=== PATIENT | female | born 1965 | race Caucasian/White ===

== ENCOUNTER 2018-11-28 03:58 | Observation (INO) | payer BC ==
--- NOTE | 2018-11-28 04:15 | EDM.PDOC ---
ED HPI GENERAL MEDICAL PROBLEM - General Chief Complaint: Lower Extremity Injury/Pain Stated Complaint: AMBULANCE Time Seen by Provider: 11/28/18 04:13 - History of Present Illness INITIAL COMMENTS - FREE TEXT/NARRATIVE: HISTORY AND PHYSICAL: History of present illness: Patient 53-year-old white female presents status post fall which injured her right lower extremity seems to be primarily her right ankle she was brought by remote computer terminal operator she denies any head or neck pain or trauma or other concern she states this was simply a mechanical fall Review of systems: As per history of present illness and below otherwise all systems reviewed and negative. Past medical history: As per history of present illness and as reviewed below otherwise noncontributory. Surgical history: As per history of present illness and as reviewed below otherwise noncontributory. Social history: No reported history of drug or alcohol abuse. Family history: As per history of present illness and as reviewed below otherwise noncontributory. Physical exam: HEENT: Atraumatic, normocephalic, pupils reactive, negative for conjunctival pallor or scleral icterus, mucous membranes moist, throat clear, neck supple, nontender, trachea midline. Lungs: Clear to auscultation, breath sounds equal bilaterally, chest nontender. Heart: S1S2, regular, negative for clicks, rubs, or JVD. Abdomen: Soft, nondistended, nontender. Negative for masses or hepatosplenomegaly. Negative for costovertebral tenderness. Pelvis: Stable nontender. Genitourinary: Deferred. Rectal: Deferred. Extremities: Patient's right ankle has an abrasion over the medial malleolus with large swelling and what appears to be a obvious fracture neurovascular exam is unremarkable Neuro: Awake, alert, oriented. Cranial nerves II through XII unremarkable. Cerebellum unremarkable. Motor and sensory unremarkable throughout. Exam nonfocal. Diagnostics: X-ray right tib-fib/ankle CBC CMP PT/INR EtOH Therapeutics: Patient's tibiotalar dislocation was reduced posterior mold was applied abrasion was cleansed and dressed with a Telfa dressing Ancef 2 g IV Impression: #1 acute right ankle injury (see bimalleolar fracture/dislocation) Definitive disposition and diagnosis as appropriate pending reevaluation and review of above. Treatments [employer]IVER: Reports: Splint(s) right ankle Pain Score (Numeric/FACES): 8 - Related Data Allergies Allergy/AdvReac Type Severity Reaction Status Date / Time No Known Allergies Allergy Verified 11/28/18 04:04 Home Meds: Home Meds . [No Known Home Meds] 11/28/18 [History] Past Medical History - Past Health History Medical/Surgical History: Denies Medical/Surgical History Social & Family History - Family History Family Medical History: Noncontributory - Tobacco Use Smoking Status *Q: Current Every Day Smoker Years of Tobacco use: 20 Packs/Tins Daily: 1 - Recreational Drug Use Recreational Drug Use: No Review of Systems - Review of Systems Review Of Systems: ROS reveals no pertinent complaints other than HPI. ED EXAM, GENERAL - Physical Exam Exam: See Below (See dictation) Course - Vital Signs Last Recorded V/S: Last Vital Signs Temp 36.4 C 11/28/18 03:58 Pulse 95 11/28/18 03:58 Resp 18 11/28/18 03:58 BP 114/69 11/28/18 03:58 Pulse Ox 95 11/28/18 03:58 - Orders/Labs/Meds Orders: Active Orders 24 hr Category Date Time Status Ankle Min 3V Rt [CR] Stat Exams 11/28/18 04:05 Taken Tibia Fibula Rt [CR] Stat Exams 11/28/18 04:05 Taken Departure - Departure Time of Disposition: 04:50 Disposition: Refer to Observation Condition: Good Clinical Impression: Bimalleolar fracture of right ankle - Discharge Information Referrals: PCP,None [Primary Care Provider] - Forms: ED Department Discharge - My Orders Last 24 Hours: My Active Orders 11/28/18 04:05 Ankle Min 3V Rt [CR] Stat Tibia Fibula Rt [CR] Stat - Assessment/Plan Last 24 Hours: My Active Orders 11/28/18 04:05 Ankle Min 3V Rt [CR] Stat Tibia Fibula Rt [CR] Stat
[2018-11-28] MEDS ORDERED: Sodium Chloride 0.9% 1,000 ML IV ONE (04:49)
[2018-11-28] MEDS ORDERED: Morphine 2 MG/ML Syringe IVPUSH ONE (04:50)
[2018-11-28] MEDS ORDERED: Ondansetron 4 MG/2 ML SDV IVPUSH ONE (04:50)
[2018-11-28] MEDS ORDERED: ceFAZolin 2 GM in Premix Bag 1 BAG IV ONE (04:51)
--- NOTE | 2018-11-28 05:20 | CR ---
HISTORY: Pain after fall COMPARISON: None available. FINDINGS: AP, lateral and oblique views of the right ankle were obtained for a total of three views. There is an acute, prominently displaced bimalleolar fracture. There is an oblique fracture of the distal fibular shaft with 100 percent lateral displacement and approximately 30 degrees lateral angulation of the distal fracture fragment. There is a comminuted, transverse fracture of the base of the medial malleolus with between 0.8 and 1.7 centimeters of lateral displacement of the fracture fragments. There is approximately 1.5 centimeters of lateral shift of the talus with 30 degrees lateral angulation. There is no sign of fracture of the talar dome. There is no sign of fracture of the posterior distal tibia. There is moderate diffuse soft tissue swelling. There is no sign of a joint effusion. There are moderate plantar and mild posterior calcaneal spurs. IMPRESSION: Acute, moderately displaced, mildly angulated bimalleolar fracture with approximately 1.7 centimeters of lateral shift and mild lateral angulation of the talus. Dictated by Woody Phillip MD @ Nov 28 2018 5:15AM Signed by Dr. Woody Phillip @ Nov 28 2018 5:19AM
--- NOTE | 2018-11-28 05:22 | CR ---
INDICATION: Pain after fall COMPARISON: Right ankle from today TECHNIQUE: AP and lateral views of the right tibia and fibula were obtained. FINDINGS: The comminuted, moderately displaced and mildly angulated bimalleolar fracture of the ankle is described on the accompanying ankle report. There is no sign of fracture of the more proximal portions of the tibia or fibula, with intact tibial and fibular shafts and an intact appearance of the knee. The soft tissues are normal in appearance without sign of radio-opaque foreign body. No significant degenerative disease is seen in the visualized portion of the knee. IMPRESSION: Acute, comminuted, moderately displaced and mildly angulated bimalleolar fracture of the ankle described on the accompanying ankle report. No sign of fracture of the rest of the tibia and fibula, with normal appearance of the knee. Dictated by Woody Phillip MD @ Nov 28 2018 5:19AM Signed by Dr. Woody Phillip @ Nov 28 2018 5:21AM
[2018-11-28 05:24] LABS: CHLORIDE,CL 97 mmol/L (98-107); SODIUM,NA 134 mmol/L (136-145)
[2018-11-28] MEDS ORDERED: Morphine 2 MG/ML Syringe IVPUSH PRN (06:48)
[2018-11-28] MEDS: Lactated Ringers 1,000 ML IV SCH ×2 (07:30→21:11)
--- NOTE | 2018-11-28 07:38 | CR ---
INDICATION: Post reduction. Right ankle fractures. TECHNIQUE: Two views right ankle. COMPARISON: Films from earlier today. FINDINGS: Overlying cast or splint obscures bony detail. Moderately displaced, moderately angulated acute comminuted fracture involving the right distal fibular metadiaphysis. Moderately displaced acute comminuted fracture involving the right medial malleolus. These fractures are less displaced. Persistent but improved medial subluxation of the right distal tibia with regard to the talar dome. Moderate diffuse soft tissue swelling distal right calf, ankle and hindfoot. Findings consistent with ligamentous disruption of the right ankle medially. Moderate subcutaneous edema. Remainder stable. Dictated by Sanford Osorio MD @ Nov 28 2018 7:33AM Signed by Dr. Sanford Osorio @ Nov 28 2018 7:36AM
[2018-11-28] MEDS ORDERED: ceFAZolin 2 GM in Premix Bag 1 BAG IV SCH (09:00)
--- NOTE | 2018-11-28 09:03 | PCM.HP ---
H&P History of Present Illness - General Date of Service: 11/28/18 Admit Problem/Dx: Admission Diagnosis/Problem Admission Diagnosis/Problem Bimalleolar fracture Source of Information: Patient History Limitations: Reports: No Limitations - History of Present Illness Initial Comments - Free Text/Narative: Fell and twisted right ankle while intoxicated. immediate and severe pain. no other pain. did not hit head. denies parastesias. Onset of Symptoms: Reports: Today Severity: Severe right ankle Pain Score (Numeric/FACES): 0 - Related Data Allergies/Adverse Reactions: Allergies Allergy/AdvReac Type Severity Reaction Status Date / Time No Known Allergies Allergy Verified 11/28/18 04:04 Home Medications: Home Meds . [No Known Home Meds] 11/28/18 [History] Past Medical History - Past Health History Medical/Surgical History: Denies Medical/Surgical History Neurological History: Reports: Other (See Below) Other Neuro History: Luis F Diaz Social & Family History - Family History Family Medical History: Noncontributory - Tobacco Use Smoking Status *Q: Current Every Day Smoker Years of Tobacco use: 20 Packs/Tins Daily: 1 Used Tobacco, but Quit: No Second Hand Smoke Exposure: No - Caffeine Use Caffeine Use: Reports: Coffee - Alcohol Use Days Per Week of Alcohol Use: 3 Number of Drinks Per Day: 6 Total Drinks Per Week: 18 - Recreational Drug Use Recreational Drug Use: No H&P Review of Systems - Review of Systems: Review Of Systems: ROS reveals no pertinent complaints other than HPI. Exam - Exam Exam: See Below - Vital Signs Vital Signs: Last Vital Signs Temp 36.8 C 11/28/18 05:30 Pulse 95 11/28/18 05:30 Resp 18 11/28/18 05:30 BP 105/70 11/28/18 05:30 Pulse Ox 99 11/28/18 05:30 Weight: 58.967 kg - Exam General: Alert, Oriented HEENT: EOMI Neck: Trachea Midline Lungs: Normal Respiratory Effort Cardiovascular: Regular Rate, Regular Rhythm GI/Abdominal Exam: Soft Skin: Warm, Dry, Intact Physical Exam Comments:: right ankle with deformity and swelling. skin is intact. active AT/EHL/GSC. 2+ DP, SILT tibial/sural/deep & superficial peroneal, saphenous. TTP right ankle. no pain in foot.no pain near knee. - Patient Data Lab Results Last 24 hrs: Laboratory Results - last 24 hr 11/28/18 11/28/18 11/28/18 Range/Units 04:57 04:57 04:57 WBC 21.02 H (4.0-11.0) K/uL RBC 4.53 (4.30-5.90) M/uL Hgb 15.1 (12.0-16.0) g/dL Hct 42.3 (36.0-46.0) % MCV 93.4 (80.0-98.0) fL MCH 33.3 H (27.0-32.0) pg MCHC 35.7 (31.0-37.0) g/dL RDW Std Deviation 45.6 (28.0-62.0) fl RDW Coeff of Kelvin 13 (11.0-15.0) % Plt Count 298 (150-400) K/uL MPV 8.80 (7.40-12.00) fL Add Manual Diff YES Neutrophils % (Manual) 81 H (48.0-80.0) % Band Neutrophils % 8 % Lymphocytes % (Manual) 11 L (16.0-40.0) % Nucleated RBC % 0.0 /100WBC Absolute Seg Neuts 17.0 H (1.4-5.7) Band Neutrophils # 1.7 Lymphocytes # (Manual) 2.3 (0.6-2.4) Nucleated RBCs # 0 K/uL INR 0.97 Sodium 134 L (136-145) mmol/L Potassium 3.6 (3.5-5.1) mmol/L Chloride 97 L (98-107) mmol/L Carbon Dioxide 18.9 L (21.0-32.0) mmol/L BUN 5 L (7.0-18.0) mg/dL Creatinine 0.6 (0.6-1.0) mg/dL Est Cr Clr Drug Dosing 79.68 mL/min Estimated GFR (MDRD) > 60.0 ml/min Glucose 96 (74-106) mg/dL Calcium 8.2 L (8.5-10.1) mg/dL Total Bilirubin 0.2 (0.2-1.0) mg/dL AST 22 (15-37) IU/L ALT 26 (14-63) IU/L Alkaline Phosphatase 138 H (46-116) U/L Total Protein 7.1 (6.4-8.2) g/dL Albumin 3.8 (3.4-5.0) g/dL Globulin 3.3 (2.6-4.0) g/dL Albumin/Globulin Ratio 1.2 (0.9-1.6) Ethyl Alcohol 296 mg/dL Result Diagrams: 11/28/18 04:57 11/28/18 04:57 Imaging Impressions Last 24 hrs: RIGHT ankle shows bimalleolar fracture with comminution and 40% subluxation laterally. - Problem List (1) Bimalleolar fracture of right ankle SNOMED Code(s): 203942038 ICD Code: S82.841A - DISPLACED BIMALLEOLAR FRACTURE OF RIGHT LOWER LEG, INIT Status: Acute Current Visit: Yes Problem List Initiated/Reviewed/Updated: Yes Orders Last 24hrs: Active Orders 24 hr Category Date Time Status Patient Status [ADT] Routine ADT 11/28/18 08:55 Ordered Patient Status [ADT] Stat ADT 11/28/18 04:50 Active Antiembolic Devices [RC] PER UNIT ROUTINE Care 11/28/18 08:56 Ordered Verify Patient Consent Obtain [RC] ASDIRECTED Care 11/28/18 08:56 Ordered NPO [Nothing Per Oral Diet] [DIET] Diet 11/28/18 Breakfast Active Acetaminophen/HYDROcodone [[place] 325-5 MG] Med 11/28/18 06:54 Active 1 - 2 tab PO Q4H PRN Lactated Ringers [Ringers, Lactated] 1,000 ml Med 11/28/18 07:00 Active IV ASDIRECTED Morphine Med 11/28/18 06:48 Active 2 mg IVPUSH Q2H PRN ceFAZolin [Ancef] 2 gm Med 11/28/18 09:00 Ordered Premix Bag 1 bag IV ONETIME Sequential Compression Device [OM.PC] Routine Oth 11/28/18 08:56 Ordered Resuscitation Status Routine Resus Stat 11/28/18 08:55 Ordered Medication Orders Hydrocodone Bitart/Acetaminophen ([place] 325-5 Mg) 1 - 2 tab PO Q4H PRN PRN Reason: Pain Lactated Ringer's (Ringers, Lactated) 1,000 mls @ 100 mls/hr IV ASDIRECTED NORMA Last Admin: 11/28/18 07:30 Dose: 100 mls/hr Cefazolin Sodium/Dextrose 2 gm (/ Premix) 50 mls @ 100 mls/hr IV ONETIME NORMA Morphine Sulfate (Morphine) 2 mg IVPUSH Q2H PRN PRN Reason: Pain/Fever Last Admin: 11/28/18 08:41 Dose: 2 mg Assessment/Plan Comment:: right ankle bimalleolar fracture/subluxation- - NPO, bedrest - I discussed the nonoperative and operative treatment options with her including ORIF. Due to the comminution and subluxation, this will likely not do well with non-operative treatment. Therefore she has elected to proceed with ORIF. She understand the risks/benefits/alternatives/ and complications of ORIF including but not limited to infection, neurovascular injury, malunion, nonunion, and she wishes to proceed. - she will be placed on ecotrin for DVT prophylaxis after surgery - she will be non weight bearing for ~ 6 weeks and will be in a splint initially - she will f/u in clinic in 2 weeks.
[2018-11-28] MEDS ORDERED: Bupivacaine 0.25% 10 ML SDV ONE (11:43)
[2018-11-28] MEDS ORDERED: Ondansetron 4 MG/2 ML SDV ONE (12:05)
[2018-11-28] MEDS ORDERED: Midazolam 1 MG/ML 2 ML SDV ONE (12:05)
[2018-11-28] MEDS ORDERED: fentaNYL 250 MCG/5 ML SDV ONE (12:05)
[2018-11-28] MEDS ORDERED: Propofol 200 MG/20 ML SDV ONE (12:05)
[2018-11-28] MEDS ORDERED: Famotidine 20 MG/2 ML SDV ONE (12:14)
--- NOTE | 2018-11-28 13:05 | PCM.PREANE ---
Preanesthetic Assessment - Anesthesia/Transfusion/Family Hx Anesthesia History: Prior Anesthesia Without Reaction ("extensive eye surgery as a child") Family History of Anesthesia Reaction: No Transfusion History: No Prior Transfusion(s) Intubation History: Unknown - Review of Systems General: No Symptoms Pulmonary: No Symptoms Cardiovascular: No Symptoms Gastrointestinal: No Symptoms, Other (Pt did drink alcohol in excess last night , which led to her fall and she states that she did vomit one time last night as well) Neurological: No Symptoms Other: Reports: None - Physical Assessment NPO Status Date: 11/28/18 NPO Status Time: 02:00 (alcohol) O2 Sat by Pulse Oximetry: 99 Respiratory Rate: 18 Vital Signs: Last Vital Signs Temp 98.3 F 11/28/18 05:30 Pulse 95 11/28/18 05:30 Resp 18 11/28/18 05:30 BP 105/70 11/28/18 05:30 Pulse Ox 99 11/28/18 05:30 Height: 4 ft 11 in Weight: 130 lb ASA Class: 2 Mental Status: Alert & Oriented x3 Airway Class: Mallampati = 4 Dentition: Reports: Normal Dentition Thyro-Mental Finger Breadths: 2 Mouth Opening Finger Breadths: 2 (VERY SMALL MOUTH) ROM/Head Extension: Full Lungs: Clear to Auscultation, Normal Respiratory Effort Cardiovascular: Regular Rate, Regular Rhythm - Lab Values: Laboratory Last Values WBC 21.02 K/uL (4.0-11.0) H 11/28/18 04:57 RBC 4.53 M/uL (4.30-5.90) 11/28/18 04:57 Hgb 15.1 g/dL (12.0-16.0) 11/28/18 04:57 Hct 42.3 % (36.0-46.0) 11/28/18 04:57 MCV 93.4 fL (80.0-98.0) 11/28/18 04:57 MCH 33.3 pg (27.0-32.0) H 11/28/18 04:57 MCHC 35.7 g/dL (31.0-37.0) 11/28/18 04:57 RDW Std Deviation 45.6 fl (28.0-62.0) 11/28/18 04:57 RDW Coeff of Kelvin 13 % (11.0-15.0) 11/28/18 04:57 Plt Count 298 K/uL (150-400) 11/28/18 04:57 MPV 8.80 fL (7.40-12.00) 11/28/18 04:57 Add Manual Diff YES 11/28/18 04:57 Neutrophils % (Manual) 81 % (48.0-80.0) H 11/28/18 04:57 Band Neutrophils % 8 % 11/28/18 04:57 Lymphocytes % (Manual) 11 % (16.0-40.0) L 11/28/18 04:57 Nucleated RBC % 0.0 /100WBC 11/28/18 04:57 Absolute Seg Neuts 17.0 (1.4-5.7) H 11/28/18 04:57 Band Neutrophils # 1.7 11/28/18 04:57 Lymphocytes # (Manual) 2.3 (0.6-2.4) 11/28/18 04:57 Nucleated RBCs # 0 K/uL 11/28/18 04:57 INR 0.97 11/28/18 04:57 Sodium 134 mmol/L (136-145) L 11/28/18 04:57 Potassium 3.6 mmol/L (3.5-5.1) 11/28/18 04:57 Chloride 97 mmol/L (98-107) L 11/28/18 04:57 Carbon Dioxide 18.9 mmol/L (21.0-32.0) L 11/28/18 04:57 BUN 5 mg/dL (7.0-18.0) L 11/28/18 04:57 Creatinine 0.6 mg/dL (0.6-1.0) 11/28/18 04:57 Est Cr Clr Drug Dosing 79.68 mL/min 11/28/18 04:57 Estimated GFR (MDRD) > 60.0 ml/min 11/28/18 04:57 Glucose 96 mg/dL (74-106) 11/28/18 04:57 Calcium 8.2 mg/dL (8.5-10.1) L 11/28/18 04:57 Total Bilirubin 0.2 mg/dL (0.2-1.0) 11/28/18 04:57 AST 22 IU/L (15-37) 11/28/18 04:57 ALT 26 IU/L (14-63) 11/28/18 04:57 Alkaline Phosphatase 138 U/L (46-116) H 11/28/18 04:57 Total Protein 7.1 g/dL (6.4-8.2) 11/28/18 04:57 Albumin 3.8 g/dL (3.4-5.0) 11/28/18 04:57 Globulin 3.3 g/dL (2.6-4.0) 11/28/18 04:57 Albumin/Globulin Ratio 1.2 (0.9-1.6) 11/28/18 04:57 HCG, Qual NEGATIVE (NEG) 11/27/18 04:13 Ethyl Alcohol 296 mg/dL 11/28/18 04:57 - Allergies Allergies/Adverse Reactions: Allergies Allergy/AdvReac Type Severity Reaction Status Date / Time No Known Allergies Allergy Verified 11/28/18 04:04 - Blood Blood Available: No Product(s) Available: None - Anesthesia Plan Free Text/Narrative:: GA with Proseal LMA (most likely child's size d/t small size of airway) vs ETT ( pt has been NPO for over 8 hours at this time with no nausea since drinking/ falling episode which she contributes to "pain") Pre-Op Medication Ordered: Antacids (will pretreat with pepcid) - Acknowledgements Anesthesia Type Planned: General Anesthesia Pt an Appropriate Candidate for the Planned Anesthesia: Yes Alternatives and Risks of Anesthesia Discussed w Pt/Guardian: Yes Pt/Guardian Understands and Agrees with Anesthesia Plan: Yes PreAnesthesia Questionnaire - Past Health History Medical/Surgical History: Denies Medical/Surgical History Gastrointestinal History: Reports: GERD (occasionally, but denies any today) Neurological History: Reports: Other (See Below) Other Neuro History: Luis F Diaz - approx 30 years ago - Past Surgical History HEENT Surgical History: Reports: Eye Surgery (pt states "extensive" eye surgery when she was little - "completely asleep") - SUBSTANCE USE Smoking Status *Q: Current Every Day Smoker Tobacco Use Within Last Twelve Months: Cigarettes Second Hand Smoke Exposure: No Days Per Week of Alcohol Use: 3 Number of Drinks Per Day: 6 Total Drinks Per Week: 18 Recreational Drug Use History: No - HOME MEDS Home Medications: Home Meds . [No Known Home Meds] 11/28/18 [History] - CURRENT (IN HOUSE) MEDS Current Meds: Current Medications Hydrocodone Bitart/Acetaminophen ([place] 325-5 Mg) 1 - 2 tab PO Q4H PRN PRN Reason: Pain Lactated Ringer's (Ringers, Lactated) 1,000 mls @ 100 mls/hr IV ASDIRECTED NORMA Last Admin: 11/28/18 07:30 Dose: 100 mls/hr Cefazolin Sodium/Dextrose 2 gm (/ Premix) 50 mls @ 100 mls/hr IV ONETIME NORMA Morphine Sulfate (Morphine) 2 mg IVPUSH Q2H PRN PRN Reason: Pain/Fever Last Admin: 11/28/18 08:41 Dose: 2 mg Discontinued Medications Bupivacaine HCl (Sensorcaine-Mpf 0.25%) Confirm Administered Dose 10 ml .ROUTE .STK-MED ONE Stop: 11/28/18 11:44 Famotidine (Pepcid) Confirm Administered Dose 20 mg .ROUTE .STK-MED ONE Stop: 11/28/18 12:15 Fentanyl (Sublimaze) Confirm Administered Dose 250 mcg .ROUTE .STK-MED ONE Stop: 11/28/18 12:06 Cefazolin Sodium/Dextrose 2 gm (/ Premix) 50 mls @ 100 mls/hr IV ONETIME ONE Stop: 11/28/18 05:20 Last Admin: 11/28/18 05:04 Dose: 100 mls/hr Sodium Chloride (Normal Saline) 1,000 mls @ 999 mls/hr IV .Bolus ONE Stop: 11/28/18 05:49 Last Admin: 11/28/18 05:00 Dose: 999 mls/hr Lidocaine HCl (Xylocaine-Mpf 1%) Confirm Administered Dose 5 mls @ as directed .ROUTE .STK-MED ONE Stop: 11/28/18 12:06 Midazolam HCl (Versed 1 Mg/Ml) Confirm Administered Dose 2 mg .ROUTE .STK-MED ONE Stop: 11/28/18 12:06 Morphine Sulfate (Morphine) 4 mg IVPUSH ONETIME ONE Stop: 11/28/18 04:51 Last Admin: 11/28/18 05:04 Dose: 4 mg Ondansetron HCl (Zofran) 4 mg IVPUSH ONETIME ONE Stop: 11/28/18 04:51 Last Admin: 11/28/18 05:04 Dose: 4 mg Ondansetron HCl (Zofran) Confirm Administered Dose 4 mg .ROUTE .STK-MED ONE Stop: 11/28/18 12:06 Propofol (Diprivan 20 Ml) Confirm Administered Dose 200 mg .ROUTE .STK-MED ONE Stop: 11/28/18 12:06
[2018-11-28] MEDS ORDERED: Phenylephrine/Normal Saline 100 MCG/ML 10 ML Syringe ONE (13:07)
[2018-11-28] MEDS ORDERED: EPINEPHrine 1 MG/1 ML Amp IVPUSH PRN (13:08)
[2018-11-28] MEDS ORDERED: fentaNYL 100 MCG/2 ML SDV IVPUSH PRN (13:08)
[2018-11-28] MEDS ORDERED: 50% Dextrose in Water 50 ML Syringe IVPUSH PRN (13:08)
[2018-11-28] MEDS ORDERED: Albuterol 0.083% 2.5 MG/3 ML Neb Soln NEB PRN (13:08)
[2018-11-28] MEDS ORDERED: Naloxone 0.4 MG/ML Syringe IVPUSH PRN (13:08)
[2018-11-28] MEDS ORDERED: Ketorolac 30 MG/ML SDV ONE (13:26)
[2018-11-28] MEDS ORDERED: ceFAZolin 1 GM Vial ONE (13:42)
--- NOTE | 2018-11-28 13:42 | PCM.OPNOTE ---
- General Post-Op/Procedure Note Date of Surgery/Procedure: 11/28/18 Operative Procedure(s): ORIF right ankle lateral malleolus Findings: comminution and dimunitive skin over medial malleolus Pre Op Diagnosis: right ankle bimalleolar ankle fracture dislocation Post-Op Diagnosis: same Anesthesia Technique: General LMA Primary Surgeon: Scott Dawn Mai EBL in mLs: 10 Complications: none Condition: Fair Free Text/Narrative:: Intake & Output 11/27/18 11/28/18 11/28/18 22:59 06:59 14:59 Output Total 1300 Balance -1300
--- NOTE | 2018-11-28 14:11 | PCM.POSTAN ---
POST ANESTHESIA ASSESSMENT - MENTAL STATUS Mental Status: Alert, Oriented - RESPIRATORY Respiratory Status: Respiratory Rate WNL, Airway Patent, O2 Saturation Stable - CARDIOVASCULAR CV Status: Pulse Rate WNL, Blood Pressure Stable - GASTROINTESTINAL GI Status: No Symptoms - PAIN Pain Score: 6 ("pain is subsiding") - POST OP HYDRATION Hydration Status: Adequate & Stable - OBSERVATIONS Free Text/Narrative:: Pt resting comfortably after additional dose of fentanyl in recovery with a smile on her face while talking. Pt appears much more relaxed than prior to surgery. VSS. Pt stable for transfer to the floor for phase II recovery.
--- NOTE | 2018-11-28 14:47 | PCM48HPAN ---
Post Anesthesia Note - EVALUATION WITHIN 48HRS OF ANESTHETIC Vital Signs in Normal Range: Yes Patient Participated in Evaluation: Yes Respiratory Function Stable: Yes Airway Patent: Yes Cardiovascular Function Stable: Yes Hydration Status Stable: Yes Pain Control Satisfactory: Yes Nausea and Vomiting Control Satisfactory: Yes Mental Status Recovered: Yes Resp Rate: 18
[2018-11-28] MEDS: Acetaminophen/HYDROcodone 325-5 MG Tab PO PRN ×2 (15:24→21:11)
--- NOTE | 2018-11-28 16:43 | OR ---
SURGEON: Scott Calderón MD DATE OF PROCEDURE: 11/28/2018 SUBJECTIVE: The patient is a 53-year-old female, who was intoxicated in the early hours of the morning and tripped and fell, twisting and suffering an ankle fracture dislocation on her right ankle. She had it partially reduced by the ER physician. We discussed with her the risks, benefits, alternatives, complications of operative and nonoperative treatment. In operative treatment, risks, benefits, alternatives, complications including not limited to, infection, neurovascular injury, continued pain, malunion, nonunion, need of postoperative protocol, DVT, PE, stroke, AR, and she wished to proceed. DESCRIPTION OF PROCEDURE: The patient was seen in preoperative area. Operative extremity was marked with the patient. She was transferred to operating room and placed supine on the operating room table. General anesthesia was induced. An LMA was placed. She received preop antibiotics of Ancef. A bump was placed under the right thigh. A well-padded upper thigh tourniquet was placed, and the right leg was prepped and draped in a fashion using alcohol followed by ChloraPrep. A formal time-out was taken identifying the correct patient, procedure and extremity. The limb was exsanguinated with an Esmarch bandage. Tourniquet inflated to 250 mmHg. Tourniquet time during the case was 20 minutes. She had very thin skin medially and abrasions/eschar over the skin medially directly over the fracture of approximately 1 x 1.5 cm. The ankle was able to be reduced easily. A 10 cm incision was centered over the lateral malleolus was made. Dissection was carried down through subcutaneous tissues. Hemostasis was obtained. The superficial peroneal nerve was looked for, but was not found. The fracture was readily identified. There was some comminution anteriorly near the anterior- inferior tibiofibular ligament which was able to be reduced. There was a typical anterior inferior to posterior superior fracture which was able to be easily reduced with reduction clamp and then a 3.5 cortical screw was placed from anterior superior to posterior inferior in inner fragmentary fashion. I was able to reduce the fibula anatomically. A four hole [place] anatomic fibular plate was placed over it and bending to make sure that it fit, and then three bicortical 3.5 cortical screws were placed approximately. One 3.5 cortical screw was placed distally bicortical and three locking screws were placed in the distal four holes unicortical. This allowed anatomic reduction of the fibula. Fluoroscopy confirmed anatomic reduction. The medial malleolus was comminuted with a large butterfly fragment on the very medial aspect. It was in relatively good position and finger pressure was able to reduce the far medial comminuted fracture. Also, under fluoroscopic control, it was checked with external stress view, there was no opening of the syndesmosis. With the ankle in dorsiflexion, the medial malleolus stayed in a reasonably well reduced position. Due to extreme thinning of the skin in comminution and the patient's alcoholism, decision was made to not proceed with ORIF of the medial malleolus due to potential risk for infection. Therefore, the tourniquet was then deflated. Hemostasis was obtained. The wound was thoroughly irrigated. The subcutaneous tissues in the lateral aspect were closed with 3-0 Vicryl and skin with ever. Xeroform sterile dressing and a Jim type splint were placed. The patient was extubated in the operating room and transferred to the recovery room in stable condition. Sponge and needle counts were correct at the end of the case. There were no complications. She will be kept nonweightbearing. She will return to clinic in 2 weeks. If the medial malleolus is not maintained in good position, she may require ORIF of that at a later date. HUMPHREY HERNANDEZ /[id number]
--- NOTE | 2018-11-29 07:26 | PCM.SN ---
- Free Text/Narrative Note: S: Unable to ambulate well yesterday with crutches so stayed overnight. pain reasonably well controlled. tolerating PO and urinating O: Afebrile vital signs stable RLE: splint dry and intact. <2 sec cap refill in toes. wiggles toes A/P: POD #1 ORIF right ankle - non weight bearing with crutches - PT today for ambulation and then home. - elevate, f/u in clinic 2 weeks. - may require ORIF of medial malleolus at a later date.
[2018-11-29] MEDS: Acetaminophen/HYDROcodone 325-5 MG Tab PO PRN ×2 (07:33→15:22)
--- NOTE | 2018-11-29 08:57 | CR ---
EXAMINATION: Right ankle HISTORY: ORIF COMPARISON: 11/28/2018 TECHNIQUE: 5 fluoroscopic images provided FINDINGS/IMPRESSION: Operative control films demonstrate screw and plate fixation of the distal fibular fracture with overall reduction of the bimalleolar fracture.
--- NOTE | 2018-11-30 17:21 | PCM.DCSUM1 ---
Discharge Summary - Hospital Course Brief History: Patient was admitted with a right ankle fracture dislocation. She was noted to the floor and then underwent open reduction internal fixation. Postoperatively she was bending forward pain was controlled and her diet was advanced and she participated in physical therapy and subsequent discharged home on postoperative day #1. She'll take aspirin for DVT prophylaxis she will follow-up in clinic in 2 weeks. She'll maintain nonweightbearing status. Diagnosis: Stroke: No - Discharge Data Discharge Date: 11/29/18 Discharge Disposition: Home, Self-Care 01 Condition: Fair - Discharge Diagnosis/Problem(s) (1) Bimalleolar fracture of right ankle SNOMED Code(s): 281435396 ICD Code: S82.841A - DISPLACED BIMALLEOLAR FRACTURE OF RIGHT LOWER LEG, INIT Status: Acute - Patient Summary/Data Operative Procedure(s) Performed: ORIF right ankle lateral malleolus Consults: Consultations 11/28/18 17:09 PT Evaluation and Treatment [CONS] Routine - Patient Instructions Diet: Usual Diet as Tolerated Activity: Apply Ice, Non Weight Bearing Driving: Do Not Drive Showering/Bathing: May Shower Showering/Bathing, Other: may shower with bag over splint to not get wet Wound/Incision Care: Do NOT Change Dressing Notify Provider of: Fever - Discharge Plan *PRESCRIPTION DRUG MONITORING PROGRAM REVIEWED*: No *COPY OF PRESCRIPTION DRUG MONITORING REPORT IN PATIENT ROBBIE: No Home Medications: Home Meds . [No Known Home Meds] 11/28/18 [History] Patient Handouts: Acetaminophen; Hydrocodone tablets or capsules, Displaced Bimalleolar Ankle Fracture Treated With ORIF, Docusate capsules, Aspirin capsules or tablets extended release Referrals: Nedra Zhang PA [Physician Finishing Room Operator] - 12/09/18 10:20 am - Discharge Summary/Plan Comment DC Time >30 min.: No - Patient Data Vitals - Most Recent: Last Vital Signs Temp 36.4 C 11/29/18 11:00 Pulse 79 11/29/18 11:00 Resp 16 11/29/18 11:00 BP 118/77 11/29/18 11:00 Pulse Ox 97 11/29/18 11:00 Weight - Most Recent: 58.967 kg Med Orders - Current: Current Medications Discontinued Medications Hydrocodone Bitart/Acetaminophen ([place] 325-5 Mg) 1 - 2 tab PO Q4H PRN PRN Reason: Pain Last Admin: 11/29/18 15:22 Dose: 1 tab Albuterol (Proventil Neb Soln) 2.5 mg NEB ONETIME PRN PRN Reason: Wheezing Bupivacaine HCl (Sensorcaine-Mpf 0.25%) Confirm Administered Dose 10 ml .ROUTE .STK-MED ONE Stop: 11/28/18 11:44 Cefazolin Sodium (Ancef) Confirm Administered Dose 1 gm .ROUTE .STK-MED ONE Stop: 11/28/18 13:43 Dextrose/Water (Dextrose 50% In Water) 50 ml IVPUSH ASDIRECTED PRN PRN Reason: Hypoglycemia Epinephrine HCl (Adrenalin) 1 mg IVPUSH ASDIRECTED PRN PRN Reason: ACLS Guidelines Famotidine (Pepcid) Confirm Administered Dose 20 mg .ROUTE .STK-MED ONE Stop: 11/28/18 12:15 Last Admin: 11/28/18 14:34 Dose: Not Given Fentanyl (Sublimaze) Confirm Administered Dose 250 mcg .ROUTE .STK-MED ONE Stop: 11/28/18 12:06 Fentanyl (Sublimaze) 50 - 100 mcg IVPUSH Q5M PRN PRN Reason: Pain Cefazolin Sodium/Dextrose 2 gm (/ Premix) 50 mls @ 100 mls/hr IV ONETIME ONE Stop: 11/28/18 05:20 Last Admin: 11/28/18 05:04 Dose: 100 mls/hr Sodium Chloride (Normal Saline) 1,000 mls @ 999 mls/hr IV .Bolus ONE Stop: 11/28/18 05:49 Last Admin: 11/28/18 05:00 Dose: 999 mls/hr Lactated Ringer's (Ringers, Lactated) 1,000 mls @ 100 mls/hr IV ASDIRECTED NORMA Last Admin: 11/28/18 21:11 Dose: 100 mls/hr Cefazolin Sodium/Dextrose 2 gm (/ Premix) 50 mls @ 100 mls/hr IV ONETIME NORMA Lidocaine HCl (Xylocaine-Mpf 1%) Confirm Administered Dose 5 mls @ as directed .ROUTE .STK-MED ONE Stop: 11/28/18 12:06 Ketorolac Tromethamine (Toradol) Confirm Administered Dose 30 mg .ROUTE .STK- MED ONE Stop: 11/28/18 13:27 Midazolam HCl (Versed 1 Mg/Ml) Confirm Administered Dose 2 mg .ROUTE .STK-MED ONE Stop: 11/28/18 12:06 Morphine Sulfate (Morphine) 4 mg IVPUSH ONETIME ONE Stop: 11/28/18 04:51 Last Admin: 11/28/18 05:04 Dose: 4 mg Morphine Sulfate (Morphine) 2 mg IVPUSH Q2H PRN PRN Reason: Pain/Fever Last Admin: 11/28/18 08:41 Dose: 2 mg Naloxone HCl (Narcan) 0.1 mg IVPUSH ASDIRECTED PRN PRN Reason: Respiratory Depression Ondansetron HCl (Zofran) 4 mg IVPUSH ONETIME ONE Stop: 11/28/18 04:51 Last Admin: 11/28/18 05:04 Dose: 4 mg Ondansetron HCl (Zofran) Confirm Administered Dose 4 mg .ROUTE .STK-MED ONE Stop: 11/28/18 12:06 Phenylephrine HCl (Phenylephrine In Ns 100 Mcg/Ml) Confirm Administered Dose 1 mg .ROUTE .STK-MED ONE Stop: 11/28/18 13:08 Propofol (Diprivan 20 Ml) Confirm Administered Dose 200 mg .ROUTE .STK-MED ONE Stop: 11/28/18 12:06
== END 2018-11-29 15:45 | disposition home or self-care (01) ==
LOC: MW.ED 03:58 → MW.MS 04:50 → INTOOBSV 08:55 → OBSVTOIN 08:55
PROVIDERS: ADMIT Orthopaedic Surgery; ATTEND Orthopaedic Surgery
DX: S82.841A Displaced bimalleolar fracture of right lower leg, initial encounter for closed fracture (principal); F17.210 Nicotine dependence, cigarettes, uncomplicated; W01.0XXA Fall on same level from slipping, tripping and stumbling without subsequent striking against object, initial encounter
CPT/HCPCS: 27814; 36415; 73590; 73600; 73610; 76000; 80053; 84703; 85025; 85610; 96365; 96375; 97161; 99285; A9270; C1713; G0480; J0690; J1885; J2001; J2250; J2270; J2370; J2405; J2704; J3010; J3490; J7040; J7120; 01480

== ENCOUNTER 2018-12-15 08:58 | Day surgery (SDC) | payer BC ==
[~2018-12-15 08:58] MED LIST: Acetaminophen/HYDROcodone 325-5 MG Tab PO PRN; Lactated Ringers 1,000 ML IV SCH; ceFAZolin 1 GM in Premix Bag 1 BAG IV SCH
--- NOTE | 2018-12-15 09:25 | PCM.PREANE ---
Preanesthetic Assessment - Anesthesia/Transfusion/Family Hx Anesthesia History: Prior Anesthesia Without Reaction Family History of Anesthesia Reaction: No Transfusion History: No Prior Transfusion(s) Intubation History: Unknown - Review of Systems General: No Symptoms Pulmonary: No Symptoms Cardiovascular: No Symptoms Gastrointestinal: No Symptoms Neurological: No Symptoms Other: Reports: None - Physical Assessment NPO Status Date: 12/14/18 Height: 4 ft 11 in Weight: 58.967 kg ASA Class: 2 (smoker) Mental Status: Alert & Oriented x3 Airway Class: Mallampati = 3 Dentition: Reports: Normal Dentition (overjet, narrow maxillary arch) ROM/Head Extension: Full Lungs: Clear to Auscultation, Normal Respiratory Effort Cardiovascular: Regular Rate, Regular Rhythm - Allergies Allergies/Adverse Reactions: Allergies Allergy/AdvReac Type Severity Reaction Status Date / Time No Known Allergies Allergy Verified 12/10/18 09:50 - Blood Blood Available: No - Anesthesia Plan Pre-Op Medication Ordered: None - Acknowledgements Anesthesia Type Planned: General Anesthesia Pt an Appropriate Candidate for the Planned Anesthesia: Yes Pt/Guardian Understands and Agrees with Anesthesia Plan: Yes PreAnesthesia Questionnaire - Past Health History Medical/Surgical History: Denies Medical/Surgical History HEENT History: Reports: Other (See Below) Other HEENT History: wears glasses Cardiovascular History: Reports: None Respiratory History: Reports: Other (See Below) Other Respiratory History: asthma as a child Gastrointestinal History: Reports: Other (See Below) Other Gastrointestinal History: occasional heartburn Genitourinary History: Reports: None Musculoskeletal History: Reports: Fracture Neurological History: Reports: Other (See Below) 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 Psychiatric History: Reports: None Endocrine/Metabolic History: Reports: None Hematologic History: Reports: None Immunologic History: Reports: None Oncologic (Cancer) History: Reports: None Dermatologic History: Reports: None - Past Surgical History Head Surgeries/Procedures: Reports: None HEENT Surgical History: Reports: Eye Surgery Cardiovascular Surgical History: Reports: None Respiratory Surgical History: Reports: None GI Surgical History: Reports: None Female Surgical History: Reports: None Endocrine Surgical History: Reports: None Neurological Surgical History: Reports: None Musculoskeletal Surgical History: Reports: Other (See Below) Other Musculoskeletal Surgeries/Procedures:: rt ankle surgery 11/28/[address] Calderón Oncologic Surgical History: Reports: None Dermatological Surgical History: Reports: None - SUBSTANCE USE Smoking Status *Q: Never Smoker Tobacco Use Within Last Twelve Months: Cigarettes Recreational Drug Use History: No - HOME MEDS Home Medications: Home Meds Hydrocodone/Acetaminophen [Hydrocodon-Acetaminophen 5-325] 1 tab PO ASDIRECTED PRN 12/10/18 [History] - CURRENT (IN HOUSE) MEDS Current Meds: Current Medications Hydrocodone Bitart/Acetaminophen ([place] 325-5 Mg) 1 - 2 tab PO Q4H PRN PRN Reason: Pain Cefazolin Sodium/Dextrose 1 gm (/ Premix) 50 mls @ 100 mls/hr IV ONCALL NORMA Lactated Ringer's (Ringers, Lactated) 1,000 mls @ 100 mls/hr IV ASDIRECTED NORMA
[2018-12-15] MEDS ORDERED: Bupivacaine 0.25% 10 ML SDV ONE (09:34)
[2018-12-15] MEDS ORDERED: fentaNYL 250 MCG/5 ML SDV ONE (10:38)
[2018-12-15] MEDS ORDERED: Midazolam 1 MG/ML 2 ML SDV ONE (10:38)
[2018-12-15] MEDS ORDERED: Propofol 200 MG/20 ML SDV ONE (10:38)
[2018-12-15] MEDS ORDERED: Ondansetron 4 MG/2 ML SDV IVPUSH ONE (12:34)
[2018-12-15] MEDS ORDERED: HYDROmorphone 2 MG/ML SDV IVPUSH ONE (12:34)
[2018-12-15] MEDS ORDERED: Meperidine PF 25 MG/ML Syringe IVPUSH ONE (12:34)
[2018-12-15] MEDS ORDERED: fentaNYL 100 MCG/2 ML SDV IVPUSH PRN (12:34)
[2018-12-15] MEDS ORDERED: Ketorolac 30 MG/ML SDV ONE (13:00)
[2018-12-15] MEDS ORDERED: Ondansetron 4 MG/2 ML SDV ONE (13:00)
--- NOTE | 2018-12-15 13:21 | PCM.OPNOTE ---
- General Post-Op/Procedure Note Date of Surgery/Procedure: 12/15/18 Operative Procedure(s): ORIF R medial malleolus Post-Op Diagnosis: R bimalleolar ankle fracture Anesthesia Technique: General LMA Primary Surgeon: Karin Diaz Medical Policy Specialist: Darlene Kwok in mLs: 10 Condition: Good Free Text/Narrative:: #[id number]
[2018-12-15] MEDS ORDERED: HYDROmorphone 2 MG/ML Syringe ONE (13:27)
[2018-12-15] MEDS ORDERED: oxyCODONE 5 MG Tab PO ONE (14:12)
[2018-12-15] MEDS ORDERED: Acetaminophen 1,000 MG in Premix Bag 1 BAG IV ONE (14:12)
--- NOTE | 2018-12-15 14:47 | PCM.POSTAN ---
POST ANESTHESIA ASSESSMENT - MENTAL STATUS Mental Status: Alert, Oriented - RESPIRATORY Respiratory Status: Respiratory Rate WNL, Airway Patent, O2 Saturation Stable - CARDIOVASCULAR CV Status: Pulse Rate WNL, Blood Pressure Stable - GASTROINTESTINAL GI Status: No Symptoms - POST OP HYDRATION Hydration Status: Adequate & Stable
--- NOTE | 2018-12-15 14:48 | PCM48HPAN ---
Post Anesthesia Note - EVALUATION WITHIN 48HRS OF ANESTHETIC Vital Signs in Normal Range: Yes Patient Participated in Evaluation: Yes Respiratory Function Stable: Yes Airway Patent: Yes Cardiovascular Function Stable: Yes Hydration Status Stable: Yes Pain Control Satisfactory: Yes Nausea and Vomiting Control Satisfactory: Yes Mental Status Recovered: Yes Resp Rate: 12
--- NOTE | 2018-12-15 19:46 | OR ---
SURGEON: Karin Diaz MD DATE OF PROCEDURE: 12/15/2018 PREOPERATIVE DIAGNOSIS: Right bimalleolar ankle fracture. POSTOPERATIVE DIAGNOSIS: Right bimalleolar ankle fracture. PROCEDURE: Open reduction and internal fixation of right medial malleolus. SOCIALLY RESPONSIBLE INVESTMENT ADVISER: TARYN Tabor. ANESTHESIA: General. ESTIMATED BLOOD LOSS: 10 mL. TOURNIQUET TIME: See nursing record. COMPLICATIONS: None. DVT PROPHYLAXIS: PAS boot to the nonoperative leg. IMPLANTS USED: One Strawberry 4.0 mm partially threaded cannulated screw with washer. BRIEF HISTORY: Senia is a 53-year-old female, who sustained a right bimalleolar ankle fracture. She previously underwent open reduction and internal fixation of the distal fibula with Dr. Calderón. She did have some soft tissue compromise over the medial aspect of the ankle, and he elected to hold off on fixation at that time. She has since been elevating the right lower extremity and has maintained nonweightbearing status. In clinic, her wound was evaluated and was found to be well healed. Her swelling had decreased markedly. At that time, I recommended open reduction and internal fixation of the right medial malleolus. The risks and goals of the procedure were discussed with the patient and were documented preoperatively. She agreed to proceed. DESCRIPTION OF PROCEDURE: The patient was properly identified and brought to the operating room. She was transferred from the OR cart and placed on the operating room table in supine position. General anesthesia was administered. After adequate anesthesia was obtained, a well-padded tourniquet was applied to the right lower extremity. The right lower extremity was then prepped in standard fashion using ChloraPrep solution. It was then sterilely draped. A time-out was performed to ensure correct site and procedure. Preoperative antibiotics were given. The surgical site had been marked preoperatively. C-arm image intensifier was used to check the position of the fracture. Its position was suboptimal and the medial malleolus was quite comminuted. An Esmarch was used to exsanguinate the right lower extremity and the tourniquet was inflated to 250 mm mmHg. An incision was made centered over the medial malleolus. Subcutaneous tissues were incised. Care was taken to look for the saphenous nerve and vein and this was not encountered. The fracture was identified. Periosteum was present within the fracture site. This was removed. The distal portion of the medial malleolus maintained attachment to the articular surface. There was a portion of the medial malleolus that had sheared from the whole proximal aspect. This did have some soft tissue attachment, and I did leave it in place. The wound was copiously irrigated with saline solution to remove the fracture hematoma. The talus was visualized. No significant damage to the talus was noted. The superior medial dome of the tibial plafond did show damage with loss of the articular cartilage. I was able to visualize and realign the articular cartilage along the medial aspect. This was held in place and a K-wire was passed. The position of the K-wire was checked in both the AP and lateral planes and did not appear to be penetrating intra-articularly. The drill was then used to over drill the K-wire and a 4.0 mm partially threaded cancellous screw was placed. This provided good compression at the fracture site, and I was able to visualize sabianism of the articular surface. C-arm images confirmed acceptable positioning of the screw. Unfortunately, the fragment of the medial malleolus was quite small. I was unable to pass another screw through the distal portion of the medial malleolus to give additional stability. The medial aspect of the bone was then inspected. I was able to replace the elevated bony fragment into its donor site. To provide additional stability, I was able to pass a #2 FiberWire through the surrounding bone to hold this large piece of bone in place. Her bone was quite soft and allowed for placement of the needle. This was then sutured down. The wound was then copiously irrigated with saline solution. Final C-arm images confirmed acceptable reduction of the articular portion of the medial malleolus. With the degree of comminution of the remainder of the medial malleolus, position was felt to be acceptable. The subcutaneous tissues were closed with 2-0 Monocryl and the skin was closed with ever. The portion of skin that appeared to be compromised initially showed good healing of the skin once the blister was removed. The underlying skin was intact. The tourniquet was deflated prior to final wound closure. No significant bleeding was noted. Xeroform gauze was placed over the wound and a bulky dressing was applied. She was placed in a well-padded posterior splint with medial and lateral stabilizing slabs. She was awakened from her anesthetic and transferred back to the operating room cart. She was brought to recovery room in stable condition. All needle and sponge counts were correct. PHILIPPE / DAVID /[id number]
--- NOTE | 2018-12-20 14:35 | CR ---
EXAMINATION: Right ankle HISTORY: Surgery COMPARISON: 12/09/2018 TECHNIQUE: 3 views FINDINGS/IMPRESSION: There is screw and plate fixation of a distal fibular fracture and a single screw fixating the medial malleolus.
== END 2018-12-15 15:25 | disposition home or self-care (01) ==
LOC: MW.SDS 08:58
PROVIDERS: ATTEND Orthopaedic Surgery
DX: S82.841A Displaced bimalleolar fracture of right lower leg, initial encounter for closed fracture (principal); F17.210 Nicotine dependence, cigarettes, uncomplicated; W19.XXXA Unspecified fall, initial encounter
CPT/HCPCS: 27814; A9270; C1713; J0131; J0690; J1885; J2001; J2250; J2405; J2704; J3010; J3490; J7120; 01480; 76000; 76000-26